=== PATIENT | male | born 1970 | race Two or more races ===

== ENCOUNTER 2017-06-23 00:31 | Emergency (ER) | payer SELFPAY ==
[2017-06-23] MEDS ORDERED: LORazepam 2 MG/ML SDV IVPUSH ONE (00:42)
[2017-06-23] MEDS ORDERED: MVI, Adult with Vitamin K 10 ML, Thiamine 100 MG, Folic Acid 1 MG in Sodium Chloride 0.... IV ONE ×4 (00:42)
--- NOTE | 2017-06-23 01:00 | EDM.PDOC ---
ED HPI GENERAL MEDICAL PROBLEM - General Chief Complaint: Drug or Alcohol Abuse Stated Complaint: AMBULANCE Time Seen by Provider: 06/23/17 00:40 - History of Present Illness INITIAL COMMENTS - FREE TEXT/NARRATIVE: HISTORY AND PHYSICAL: History of present illness: Patient 47-year-old with history of alcoholism and prior acute alcohol withdrawal including DTs per history who presents via paramedics after an 18 day rosales in which he states his last drink was [place] beer approximately 6 PM paramedics reported that he had significant tremors slightly agitated but cooperative on arrival here he seems relatively calm he is very minor tremor she 's not tachycardic or hypertensive he is requesting medical detox and states he' s had severe withdrawn the past. He denies chest pain shortness of breath or other concern Review of systems: As per history of present illness and below otherwise all systems reviewed and negative. Past medical history: As per history of present illness and as reviewed below otherwise noncontributory. Surgical history: As per history of present illness and as reviewed below otherwise noncontributory. Social history: No reported history of drug or alcohol abuse. Family history: As per history of present illness and as reviewed below otherwise noncontributory. Physical exam: HEENT: Generally poor dentition Atraumatic, normocephalic, pupils reactive, negative for conjunctival pallor or scleral icterus, mucous membranes moist, throat clear, neck supple, nontender, trachea midline. Lungs: Clear to auscultation, breath sounds equal bilaterally, chest nontender. Heart: S1S2, regular, negative for clicks, rubs, or JVD. Abdomen: Soft, nondistended, nontender. Negative for masses or hepatosplenomegaly. Negative for costovertebral tenderness. Pelvis: Stable nontender. Genitourinary: Deferred. Rectal: Deferred. Extremities: Atraumatic, negative for cords or calf pain. Neurovascular unremarkable. Neuro: Awake, alert, oriented. Cooperative mild tremors noted Cranial nerves II through XII unremarkable. Cerebellum unremarkable. Motor and sensory unremarkable throughout. Exam nonfocal. Diagnostics: CBC CMP PT/INR EKG chest x-ray Therapeutics: And a bag Ativan 1 mg IV Impression: #1 alcohol abuse/dependence with acute withdrawal Definitive disposition and diagnosis as appropriate pending reevaluation and review of above. abdomen Pain Score (Numeric/FACES): 6 - Related Data Allergies Allergy/AdvReac Type Severity Reaction Status Date / Time No Known Allergies Allergy Verified 06/23/17 00:39 Home Meds: Home Meds . [No Known Home Meds] 06/23/17 [History] Past Medical History - Past Health History Medical/Surgical History: Denies Medical/Surgical History Respiratory History: Reports: TB Social & Family History - Family History Family Medical History: Noncontributory - Tobacco Use Smoking Status *Q: Current Every Day Smoker Years of Tobacco use: 30 Packs/Tins Daily: 1 - Recreational Drug Use Recreational Drug Use: Yes Drug Use in Last 12 Months: Yes Recreational Drug Type: Reports: Marijuana/Hashish ED ROS GENERAL - Review of Systems Review Of Systems: ROS reveals no pertinent complaints other than HPI. ED EXAM, GENERAL - Physical Exam Exam: See Below (The dictation) Course - Vital Signs Last Recorded V/S: Last Vital Signs Temp 36.6 C 06/23/17 00:31 Pulse 63 06/23/17 00:31 Resp 18 06/23/17 00:31 BP 125/96 H 06/23/17 00:31 Pulse Ox 100 06/23/17 00:31 - Orders/Labs/Meds Orders: Active Orders 24 hr Category Date Time Status Chest 1V Frontal [CR] Stat Exams 06/23/17 00:44 Ordered CBC WITH AUTO DIFF [HEME] Stat Lab 06/23/17 00:44 Ordered COMPREHENSIVE METABOLIC PN,CMP [CHEM] Stat Lab 06/23/17 00:44 Ordered DRUG SCREEN, URINE [URCHEM] Stat Lab 06/23/17 00:45 Received ETHANOL BLOOD MEDICAL [CHEM] Stat Lab 06/23/17 00:44 Ordered MVI, Adult with Vitamin K [Infuvite Adult] 10 ml Med 06/23/17 00:42 Active Thiamine [Vitamin B-1] 100 mg Folic Acid 1 mg Sodium Chloride 0.9% [Normal Saline] 1,000 ml IV ONETIME Medication Orders Multivitamins/Minerals 10 ml/Thiamine HCl 100 mg/ Folic Acid 1 mg/ Sodium Chloride 1,011.2 mls @ 999 mls/hr IV ONETIME ONE Stop: 06/23/17 01:42 Labs: Laboratory Tests 06/23/17 Range/Units 00:45 Urine Color DARK YELLOW Urine Appearance HAZY Urine pH 5.5 (5.0-8.0) Ur Specific [place] >= 1.030 (1.001-1.035) Urine Protein >=300 (NEGATIVE) mg/dL Urine Glucose (UA) NEGATIVE (NEGATIVE) mg/dL Urine Ketones NEGATIVE (NEGATIVE) mg/dL Urine Occult Blood SMALL H (NEGATIVE) Urine Nitrite NEGATIVE (NEGATIVE) Urine Bilirubin NEGATIVE (NEGATIVE) Urine Urobilinogen 0.2 (<2.0) EU/dL Ur Leukocyte Esterase NEGATIVE (NEGATIVE) Urine RBC 0-3 (0-2/HPF) Urine WBC 0-3 (0-5/HPF) Ur Epithelial Cells OCCASIONAL (NONE-FEW) Urine Bacteria FEW (NEGATIVE) Urine Mucus MODERATE (NONE-MOD) Meds: Medications Generic Name Dose Route Start Last Admin Trade Name Freq PRN Reason Stop Dose Admin Multivitamins/Minerals 10 ml/ 1,011.2 mls @ 999 mls/hr 06/23/17 00:42 Thiamine HCl 100 mg/ Folic IV 06/23/17 01:42 Acid 1 mg/ Sodium Chloride ONETIME ONE Discontinued Medications Generic Name Dose Route Start Last Admin Trade Name Freq PRN Reason Stop Dose Admin Lorazepam 1 mg 06/23/17 00:42 Ativan IVPUSH 06/23/17 00:43 ONETIME ONE Departure - Departure Time of Disposition: 01:00 Disposition: DC/Tfer to Acute Hospital 02 Condition: Fair Clinical Impression: Alcohol abuse, Alcohol withdrawal syndrome - Discharge Information - My Orders Last 24 Hours: My Active Orders 06/23/17 00:42 MVI, Adult with Vitamin K [Infuvite Adult] 10 ml Thiamine [Vitamin B-1] 100 mg Folic Acid 1 mg Sodium Chloride 0.9% [Normal Saline] 1,000 ml IV ONETIME 06/23/17 00:44 Chest 1V Frontal [CR] Stat CBC WITH AUTO DIFF [HEME] Stat COMPREHENSIVE METABOLIC PN,CMP [CHEM] Stat ETHANOL BLOOD MEDICAL [CHEM] Stat 06/23/17 00:45 DRUG SCREEN, URINE [URCHEM] Stat - Assessment/Plan Last 24 Hours: My Active Orders 06/23/17 00:42 MVI, Adult with Vitamin K [Infuvite Adult] 10 ml Thiamine [Vitamin B-1] 100 mg Folic Acid 1 mg Sodium Chloride 0.9% [Normal Saline] 1,000 ml IV ONETIME 06/23/17 00:44 Chest 1V Frontal [CR] Stat CBC WITH AUTO DIFF [HEME] Stat COMPREHENSIVE METABOLIC PN,CMP [CHEM] Stat ETHANOL BLOOD MEDICAL [CHEM] Stat 06/23/17 00:45 DRUG SCREEN, URINE [URCHEM] Stat
[2017-06-23 01:44] LABS: CHLORIDE,CL 104 mmol/L (98-110); SODIUM,NA 141 mmol/L (136-146)
--- NOTE | 2017-06-24 18:09 | CR ---
EXAM DATE: 06/23/17 PATIENT'S AGE: 47 Patient: JANNETH SWANSON Facility: [place], [place] Site . Site : [id number] Study: XRay Chest [id number] 1:34:43 AM Ordering Physician: Elidia Martino Final Report: INDICATION: Alcohol intoxication TECHNIQUE: Chest radiograph 1 view COMPARISON: None FINDINGS: Mediastinum: The heart silhouette is normal in size and morphology. The mediastinum is normal in appearance. Lungs: Confluent opacities with architectural distortion is seen in the left apex. No sign of pleural effusion seen. No pneumothorax is identified. Bones and soft tissue: Unremarkable for age. IMPRESSION: 1. Confluent opacities with architectural distortion is seen in the left apex. This may be due to pleural parenchymal scarring but evaluation with outpatient chest CT is recommended to exclude a pulmonary mass. Dictated by Akhil Rausch MD @ 06/23/2017 1:38:11 AM Dictated by: Akhil Rausch MD @ 06/23/2017 01:38:14 (Electronic Signature) Report Signed by Proxy. [facility] CENTERStanley
== END 2017-06-23 03:15 ==
LOC: MW.ED 00:31
DX: F10.239 Alcohol dependence with withdrawal, unspecified (principal); F17.210 Nicotine dependence, cigarettes, uncomplicated
CPT/HCPCS: 36415; 71045; 80053; 80305; 81001; 85025; 85610; 93005; 96365; 96375; 99285; G0480; J2060; J3411; J7040; 99283

== ENCOUNTER 2018-09-03 13:34 | Inpatient (IN) | payer OTHER ==
[2018-09-03] MEDS ORDERED: MVI, Adult with Vitamin K 10 ML, Thiamine 100 MG, Folic Acid 1 MG in Sodium Chloride 0.... IV ONE ×4 (13:36)
--- NOTE | 2018-09-03 13:41 | EDM.PDOC ---
ED HPI GENERAL MEDICAL PROBLEM - General Chief Complaint: Neurological Problem Stated Complaint: SEIZURES Time Seen by Provider: 09/03/18 13:36 Source of Information: Reports: Patient History Limitations: Reports: No Limitations - History of Present Illness INITIAL COMMENTS - FREE TEXT/NARRATIVE: HISTORY AND PHYSICAL: History of present illness: Patient is a 48-year-old male who presents to the emergency room today with complaints of seizure-like activity while at work. Patient states he has had a seizure before, but has never been on medication or been formally diagnosed with a seizure disorder. He states that his last seizure was "many years ago" and unsure if it was related to his alcohol use. Patient is a daily alcohol drinker, drinking 12 beers per day. He does not note any change in the amount or consistency of his alcohol usage. He woke up this morning and felt well. While at work prior to arrival he had fallen to the ground and had seizure-like activity for approximately 15-30 seconds. EMS was called to scene. Upon EMS arrival he was alert and postictal. Sugar was 103 on arrival. Vital signs stable. Review of systems: As per history of present illness and below otherwise all systems reviewed and negative. Past medical history: As per history of present illness and as reviewed below otherwise noncontributory. Surgical history: As per history of present illness and as reviewed below otherwise noncontributory. Social history: See social history for further information Family history: As per history of present illness and as reviewed below otherwise noncontributory. Physical exam: General: Well-developed and well-nourished 48-year-old male. Alert and appropriate for age. Nontoxic appearing and in no acute distress. HEENT: Normocephalic, pupils equal and reactive bilaterally, negative for conjunctival pallor or scleral icterus, mucous membranes moist, TMs normal bilaterally, throat clear, neck supple, nontender, trachea midline. No drooling or trismus noted. No meningeal signs. No hot potato voice noted. Lungs: Clear to auscultation, breath sounds equal bilaterally, chest nontender. Heart: S1S2, regular rate and rhythm without overt murmur Abdomen: Soft, nondistended, nontender. Negative for masses or hepatosplenomegaly. Negative for costovertebral tenderness. Pelvis: Stable nontender. Genitourinary: Deferred. Rectal: Deferred. Skin: Intact, warm, dry. No lesions or rashes noted. Extremities: Atraumatic, moves all extremities per self without difficulty or deficits, negative for cords or calf pain. Neurovascular unremarkable. Neuro: Awake, alert, oriented. Cranial nerves II through XII unremarkable. Cerebellum unremarkable. Motor and sensory unremarkable throughout. Exam nonfocal. 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 He states he is currently asymptomatic and offers no complaints but is agreeable to routine lab work and imaging for the seizure-like activity that was witnessed. Head CT shows no acute findings. Chest x-ray is within normal limits. Patient does have some electrolyte imbalances; which could be chronic. He does appear more tremulous and confused; he thinks he is in [facility] currently. VSS but does continue to have elevated pulse of 90-110's. Dr Pelayo was consulted on this case; he is agreeable to keeping patient for observation. Diagnostics: CBC, CMP, EKG, head CT, one view chest, prolactin Therapeutics: Banana Bag, Zofran, NS at 125ml/hr, Ativan Impression: Seizure-like activity Dehydration Alcohol withdrawl Hypokalemia Plan: Observation admission with telemetry Definitive disposition and diagnosis as appropriate pending reevaluation and review of above. Onset: Today - Related Data Allergies Allergy/AdvReac Type Severity Reaction Status Date / Time No Known Allergies Allergy Verified 09/03/18 13:38 Home Meds: Home Meds . [No Known Home Meds] 06/23/17 [History] Past Medical History - Past Health History Medical/Surgical History: Denies Medical/Surgical History Respiratory History: Reports: TB - Infectious Disease History Infectious Disease History: Reports: Chicken Pox Social & Family History - Family History Family Medical History: Noncontributory ED ROS GENERAL - Review of Systems Review Of Systems: ROS reveals no pertinent complaints other than HPI. - Physical Exam Exam: See Below (See dictation) Course - Vital Signs Last Recorded V/S: Last Vital Signs Temp 96.8 F 09/03/18 13:35 Pulse 95 09/03/18 15:38 Resp 18 09/03/18 15:38 BP 113/73 09/03/18 15:38 Pulse Ox 96 09/03/18 15:38 - Orders/Labs/Meds Orders: Active Orders 24 hr Category Date Time Status Admission Status [Patient Status] [ADT] Stat ADT 09/03/18 16:09 Active EKG Documentation Completion [RC] STAT Care 09/03/18 13:36 Active UA RFX DEL AND CULT IF INDIC [URIN] Stat Lab 09/03/18 13:36 Ordered Sodium Chloride 0.9% [Normal Saline] 1,000 ml Med 09/03/18 16:15 Active IV ASDIRECTED Medication Orders Sodium Chloride (Normal Saline) 1,000 mls @ 125 mls/hr IV ASDIRECTED ASHISH Labs: Laboratory Tests 09/03/18 09/03/18 09/03/18 Range/Units 13:48 13:48 13:48 WBC 5.42 (4.0-11.0) K/uL RBC 4.34 L (4.50-5.90) M/uL Hgb 15.0 (13.0-17.0) g/dL Hct 43.4 (38.0-50.0) % MCV 100.0 H (80.0-98.0) fL MCH 34.6 H (27.0-32.0) pg MCHC 34.6 (31.0-37.0) g/dL RDW Std Deviation 52.8 (28.0-62.0) fl RDW Coeff of [place] 14 (11.0-15.0) % Plt Count 58 L (150-400) K/uL MPV 11.10 (7.40-12.00) fL Neut % (Auto) 76.4 (48.0-80.0) % Lymph % (Auto) 10.9 L (16.0-40.0) % [place] % (Auto) 12.5 (0.0-15.0) % Eos % (Auto) 0.0 (0.0-7.0) % Baso % (Auto) 0.2 (0.0-1.5) % Neut # (Auto) 4.1 (1.4-5.7) K/uL Lymph # (Auto) 0.6 (0.6-2.4) K/uL [place] # (Auto) 0.7 (0.0-0.8) K/uL Eos # (Auto) 0.0 (0.0-0.7) K/uL Baso # (Auto) 0.0 (0.0-0.1) K/uL Nucleated RBC % 0.0 /100WBC Nucleated RBCs # 0 K/uL Sodium 131 L (136-148) mmol/L Potassium 3.2 L (3.5-5.1) mmol/L Chloride 87 L (98-107) mmol/L Carbon Dioxide 15.8 L (21.0-32.0) mmol/L BUN 19 H (7.0-18.0) mg/dL Creatinine 2.0 H (0.8-1.3) mg/dL Est Cr Clr Drug Dosing 41.56 mL/min Estimated GFR (MDRD) 35.7 ml/min Glucose 94 (74-106) mg/dL Calcium 9.6 (8.5-10.1) mg/dL Total Bilirubin 1.7 H (0.2-1.0) mg/dL AST 140 H (15-37) IU/L ALT 53 (14-63) IU/L Alkaline Phosphatase 74 (46-116) U/L Total Protein 8.4 H (6.4-8.2) g/dL Albumin 4.1 (3.4-5.0) g/dL Globulin 4.3 H (2.6-4.0) g/dL Albumin/Globulin Ratio 1.0 (0.9-1.6) Prolactin 28.4 ng/mL Ethyl Alcohol 20 mg/dL Meds: Medications Generic Name Dose Route Start Last Admin Trade Name Freq PRN Reason Stop Dose Admin Sodium Chloride 1,000 mls @ 125 mls/hr 09/03/18 16:15 Normal Saline IV ASDIRECTED ASHISH Discontinued Medications Generic Name Dose Route Start Last Admin Trade Name Freq PRN Reason Stop Dose Admin Multivitamins/Minerals 10 ml/ 1,011.2 mls @ 999 mls/hr 09/03/18 13:36 14:19 Thiamine HCl 100 mg/ Folic IV 09/03/18 14:36 999 mls/hr Acid 1 mg/ Sodium Chloride ONETIME ONE Administration Lorazepam 1 mg 09/03/18 16:01 Ativan IVPUSH 09/03/18 16:02 ONETIME ONE Departure - Departure Time of Disposition: 16:17 Disposition: Refer to Observation Clinical Impression: Seizure-like activity, Hypokalemia, Dehydration Alcohol withdrawal Qualifiers: Complication of substance-induced condition: uncomplicated Qualified Code(s): F10.230 - Alcohol dependence with withdrawal, uncomplicated - Discharge Information Referrals: PCP,Unknown [Primary Care Provider] - Forms: ED Department Discharge - My Orders Last 24 Hours: My Active Orders 09/03/18 13:36 EKG Documentation Completion [RC] STAT UA RFX DEL AND CULT IF INDIC [URIN] Stat 09/03/18 16:09 Admission Status [Patient Status] [ADT] Stat 09/03/18 16:15 Sodium Chloride 0.9% [Normal Saline] 1,000 ml IV ASDIRECTED - Assessment/Plan Last 24 Hours: My Active Orders 09/03/18 13:36 EKG Documentation Completion [RC] STAT UA RFX DEL AND CULT IF INDIC [URIN] Stat 09/03/18 16:09 Admission Status [Patient Status] [ADT] Stat 09/03/18 16:15 Sodium Chloride 0.9% [Normal Saline] 1,000 ml IV ASDIRECTED
--- NOTE | 2018-09-03 15:20 | CR ---
EXAMINATION: Portable chest radiograph. HISTORY: Seizure. Comparison: 06/23/2014 FINDINGS: The trachea is midline. The cardiomediastinal silhouette is within normal limits. No pulmonary infiltrates, effusions or pneumothorax. Left basilar atelectasis/scarring. Stable scarring within the left upper lobe. Small nipple shadows noted bilaterally. Osseous structures appear unremarkable. IMPRESSION: No acute cardiopulmonary process.
--- NOTE | 2018-09-03 15:26 | CT ---
EXAMINATION: Non contrast CT head. Coronal and sagittal reformats. HISTORY: Seizure FINDINGS: No evidence of intra or extra axial hemorrhage, mass, midline shift, hydrocephalus or edema. Mild generalized atrophy. No hypoattenuation changes in the major vascular territories to suggest acute infarct. No abnormal intracranial calcifications are detected. No evidence of substantial vascular calcifications. Orbits and globes are symmetric. Minimal mucosal thickening within the Findings sinuses. Mastoid air cells and middle ears are clear. Pituitary fossa appears unremarkable. Calvarium is intact. No evidence of skull fracture. IMPRESSION: No acute intracranial findings.
[2018-09-03] MEDS ORDERED: LORazepam 2 MG/ML SDV IVPUSH ONE (16:01)
[2018-09-03] MEDS ORDERED: Ondansetron 4 MG/2 ML SDV IVPUSH PRN (16:31)
[2018-09-03] MEDS ORDERED: Acetaminophen 325 MG Tab PO PRN (16:31)
[2018-09-03] MEDS: Sodium Chloride 0.9% 1,000 ML IV SCH (16:34)
--- NOTE | 2018-09-03 16:42 | PCM.HP ---
<Jerilyn Burns M - Last Filed: 09/03/18 16:36> H&P History of Present Illness - General Date of Service: 09/03/18 Admit Problem/Dx: Admission Diagnosis/Problem Admission Diagnosis/Problem Alcohol withdrawal syndrome Source of Information: Patient History Limitations: Reports: No Limitations - History of Present Illness Initial Comments - Free Text/Narative: This 48 year old male with pmh of alcohol abuse and dependence, with history of withdrawl and seizures presented to the ED after having an episode of seizure like activity at work. He reports he was looking up and then next thing he was on the ground and co-workers around him saw him tremulous. No urine or bowel incontinence. He reports he drinks 12 pack of beer daily, starting to drink in the mornings to keep the shakes away. Adds in hard alcohol intermittently ad on the weekends he easily drinks 30 beers daily. He reports he has quit for short period of time, but is not interested in inpatient treatment. He reports I need to keep working. Sobriety was urged due to health concerns currently. He reports his last drink was last evening sometime. In the ED thrombocytopenia noted, platelets 58,000, Na 131, K+ 3.2, Bicarb 15.8 , BUN 19, Cr 2.0. Bilirubin 1.[address] negative as well as CXR. He was noted to be tachycardic and tremulous in the ED. He was given MVI in 1 L NS along with Ativan. he will be admitted for alcohol withdrawl. - Related Data Allergies/Adverse Reactions: Allergies Allergy/AdvReac Type Severity Reaction Status Date / Time No Known Allergies Allergy Verified 09/03/18 13:38 Home Medications: Home Meds . [No Known Home Meds] 06/23/17 [History] Past Medical History - Past Health History Medical/Surgical History: Denies Medical/Surgical History Cardiovascular History: Reports: None. Denies: Afib, Blood Clots/VTE/DVT, High Cholesterol, Hypertension, OR Respiratory History: Reports: TB (treated in 2007) Neurological History: Reports: Seizure Psychiatric History: Reports: Addiction - Infectious Disease History Infectious Disease History: Reports: Chicken Pox, TB - Past Surgical History Cardiovascular Surgical History: Reports: None Respiratory Surgical History: Reports: None GI Surgical History: Reports: None Social & Family History - Family History Family Medical History: Noncontributory - Tobacco Use Smoking Status *Q: Current Every Day Smoker Years of Tobacco use: 30 Packs/Tins Daily: 1 - Alcohol Use Alcohol Use History: Yes Days Per Week of Alcohol Use: 7 Number of Drinks Per Day: 18 Total Drinks Per Week: 126 Alcohol Use Frequency: Daily - Recreational Drug Use Recreational Drug Use: No - Living Situation & Occupation Occupation: Employed ([employer]) H&P Review of Systems - Review of Systems: Review Of Systems: See Below General: Reports: Malaise. Denies: Fever, Chills HEENT: Reports: No Symptoms. Denies: Headaches, Sinus Congestion, Sore Throat, Vertigo Pulmonary: Reports: No Symptoms. Denies: Shortness of Breath Cardiovascular: Reports: No Symptoms. Denies: Chest Pain Gastrointestinal: Reports: No Symptoms. Denies: Abdominal Pain, Black Stool, Bloody Stool, Nausea, Vomiting Genitourinary: Reports: No Symptoms. Denies: Dysuria, Frequency, Burning Musculoskeletal: Reports: No Symptoms. Denies: Neck Pain Skin: Reports: No Symptoms Psychiatric: Reports: No Symptoms Neurological: Reports: Tremors Hematologic/Lymphatic: Reports: No Symptoms Immunologic: Reports: No Symptoms Exam - Exam Exam: See Below - Vital Signs Vital Signs: Last Vital Signs Temp 96.8 F 09/03/18 13:35 Pulse 117 H 09/03/18 16:30 Resp 18 09/03/18 16:30 BP 110/76 09/03/18 16:30 Pulse Ox 97 09/03/18 16:30 Weight: 65.771 kg - Exam General: Alert, Oriented, Cooperative, Other (cachectic in appearance, and unkept) HEENT: Conjunctiva Clear, Mucosa Moist & [place], Pupils Reactive Lungs: Clear to Auscultation, Normal Respiratory Effort Cardiovascular: Tachycardia GI/Abdominal Exam: Normal Bowel Sounds, Soft, Non-Tender Extremities: Normal Inspection, Normal Range of Motion, Non-Tender, No Pedal Edema Neuro Extensive - Mental Status: Alert, Oriented x3, Normal Mood/Affect Neuro Extensive - Motor, Sensory, Reflexes: CN II-XII Intact Psychiatric: Alert, Normal Affect, Anxious, Withdrawal Symptoms (tremulous) - Patient Data Lab Results Last 24 hrs: Laboratory Results - last 24 hr 05/01/19 05/01/19 05/01/19 Range/Units 13:48 13:48 13:48 WBC 5.42 (4.0-11.0) K/uL RBC 4.34 L (4.50-5.90) M/uL Hgb 15.0 (13.0-17.0) g/dL Hct 43.4 (38.0-50.0) % MCV 100.0 H (80.0-98.0) fL MCH 34.6 H (27.0-32.0) pg MCHC 34.6 (31.0-37.0) g/dL RDW Std Deviation 52.8 (28.0-62.0) fl RDW Coeff of [place] 14 (11.0-15.0) % Plt Count 58 L (150-400) K/uL MPV 11.10 (7.40-12.00) fL Neut % (Auto) 76.4 (48.0-80.0) % Lymph % (Auto) 10.9 L (16.0-40.0) % Real % (Auto) 12.5 (0.0-15.0) % Eos % (Auto) 0.0 (0.0-7.0) % Baso % (Auto) 0.2 (0.0-1.5) % Neut # (Auto) 4.1 (1.4-5.7) K/uL Lymph # (Auto) 0.6 (0.6-2.4) K/uL Real # (Auto) 0.7 (0.0-0.8) K/uL Eos # (Auto) 0.0 (0.0-0.7) K/uL Baso # (Auto) 0.0 (0.0-0.1) K/uL Nucleated RBC % 0.0 /100WBC Nucleated RBCs # 0 K/uL Sodium 131 L (136-148) mmol/L Potassium 3.2 L (3.5-5.1) mmol/L Chloride 87 L (98-107) mmol/L Carbon Dioxide 15.8 L (21.0-32.0) mmol/L BUN 19 H (7.0-18.0) mg/dL Creatinine 2.0 H (0.8-1.3) mg/dL Est Cr Clr Drug Dosing 41.56 mL/min Estimated GFR (MDRD) 35.7 ml/min Glucose 94 (74-106) mg/dL Calcium 9.6 (8.5-10.1) mg/dL Total Bilirubin 1.7 H (0.2-1.0) mg/dL AST 140 H (15-37) IU/L ALT 53 (14-63) IU/L Alkaline Phosphatase 74 (46-116) U/L Total Protein 8.4 H (6.4-8.2) g/dL Albumin 4.1 (3.4-5.0) g/dL Globulin 4.3 H (2.6-4.0) g/dL Albumin/Globulin Ratio 1.0 (0.9-1.6) Prolactin 28.4 ng/mL Ethyl Alcohol 20 mg/dL Result Diagrams: 09/03/18 13:48 09/03/18 13:48 *Q Meaningful Use (ADM) - VTE *Q VTE Pharmacological Contraindications *Q: Risk of Bleeding - Problem List (1) Alcohol withdrawal syndrome SNOMED Code(s): 652274885 ICD Code: F10.239 - ALCOHOL DEPENDENCE WITH WITHDRAWAL, UNSPECIFIED Status : Acute Current Visit: Yes Qualifiers: Complication of substance-induced condition: uncomplicated Qualified Code(s ): F10.230 - Alcohol dependence with withdrawal, uncomplicated (2) Thrombocytopenia SNOMED Code(s): 390711910 ICD Code: D69.6 - THROMBOCYTOPENIA, UNSPECIFIED Status: Acute Current Visit: Yes (3) Dehydration SNOMED Code(s): 51790158 ICD Code: E86.0 - DEHYDRATION Status: Acute Current Visit: Yes (4) Hypokalemia SNOMED Code(s): 01084052 ICD Code: E87.6 - HYPOKALEMIA Status: Acute Current Visit: Yes (5) Seizure-like activity SNOMED Code(s): 902565995 ICD Code: R56.9 - UNSPECIFIED CONVULSIONS Status: Acute Current Visit: Yes (6) Alcohol abuse SNOMED Code(s): 23527978 ICD Code: F10.10 - ALCOHOL ABUSE, UNCOMPLICATED Status: Chronic Current Visit: No (7) Alcohol dependence SNOMED Code(s): 51478123 ICD Code: F10.20 - ALCOHOL DEPENDENCE, UNCOMPLICATED Status: Chronic Current Visit: No Qualifiers: Substance use status: unspecified alcohol-induced disorder Qualified Code(s ): F10.29 - Alcohol dependence with unspecified alcohol-induced disorder Problem List Initiated/Reviewed/Updated: Yes Orders Last 24hrs: Active Orders 24 hr Category Date Time Status Admission Status [Patient Status] [ADT] Stat ADT 09/03/18 16:09 Active Antiembolic Devices [RC] PER UNIT ROUTINE Care 09/03/18 16:33 Ordered CIWAA Assessment [RC] Q4H Care 09/03/18 16:31 Ordered EKG Documentation Completion [RC] STAT Care 09/03/18 13:36 Active Intake and Output [RC] QSHIFT Care 09/03/18 16:32 Ordered Oxygen Therapy [RC] PRN Care 09/03/18 16:31 Ordered Telemetry Monitoring [Cardiac Monitoring] [RC] . Care 09/03/18 16:35 Ordered DIRECTED Up With Assistance [RC] ASDIRECTED Care 09/03/18 16:31 Ordered VTE/DVT Education [RC] PER UNIT ROUTINE Care 09/03/18 16:31 Ordered Vital Signs [RC] Q4H Care 09/03/18 16:31 Ordered Regular Diet [DIET] Diet 09/03/18 Dinner Ordered CBC WITH AUTO DIFF [HEME] AM Lab 09/04/18 05:11 Ordered COMPREHENSIVE METABOLIC PN,CMP [CHEM] AM Lab 09/04/18 05:11 Ordered UA RFX DEL AND CULT IF INDIC [URIN] Stat Lab 09/03/18 13:36 Ordered Acetaminophen [Tylenol] Med 09/03/18 16:31 Ordered 650 mg PO Q4H PRN Folic Acid Med 09/03/18 21:00 Ordered 1 mg PO BEDTIME LORazepam [Ativan] Med 09/03/18 16:31 Ordered See Protocol IV Q4H PRN Ondansetron [Zofran] Med 09/03/18 16:31 Ordered 4 mg IVPUSH Q4H PRN Sodium Chloride 0.9% [Normal Saline] 1,000 ml Med 09/03/18 16:15 Active IV ASDIRECTED Thiamine [Vitamin B-1] Med 09/03/18 21:00 Ordered 100 mg PO BEDTIME Seizure Precautions [OM.PC] Routine Oth 09/03/18 16:35 Ordered Sequential Compression Device [OM.PC] Per Unit Routine Oth 09/03/18 16:32 Ordered Resuscitation Status Routine Resus Stat 09/03/18 16:31 Ordered Medication Orders Acetaminophen (Tylenol) 650 mg PO Q4H PRN PRN Reason: Pain (Mild 1-3)/fever Folic Acid (Folic Acid) 1 mg PO BEDTIME ASHISH Sodium Chloride (Normal Saline) 1,000 mls @ 125 mls/hr IV ASDIRECTED [facility] Lorazepam (Ativan) 0 mg IV Q4H PRN; Protocol PRN Reason: CIWAA Ondansetron HCl (Zofran) 4 mg IVPUSH Q4H PRN PRN Reason: Nausea Thiamine HCl (Vitamin B-1) 100 mg PO BEDTIME ASHISH Assessment/Plan Comment:: This 48 year old male admitted with alcohol withdrawal symptoms and possible seizure. 1. Alcohol withdrawal: reports seizure like activity has happened in past. Educated him that it is most likely due to heavy alcohol use and then withdrawal. Will place on CIWAA with Ativan protocol. Seizure precautions. Thiamine and folic acid. HIGH fall risk. Nursing to monitor closely. Denies wanting inpatient treatment. Will provide community resources for sobriety. 2. Dehydration: Correct electrolytes. NS with 40 KCL x 1 then continue NS at 125 overnight. recheck BMP in am. 3. Thrombocytopenia: Last platelet count 108,000. Will monitor No signs of bleeding. Likely secondary to alcoholic cirrhosis. will check INR in am. VTE prophylaxis: SCDs. Dispo: 1-2 days pending improvement. <Gustabo Pelayo - Last Filed: 09/03/18 17:02> H&P History of Present Illness - General Admit Problem/Dx: Admission Diagnosis/Problem Admission Diagnosis/Problem Alcohol withdrawal syndrome I have seen and examined to patient independently of Jerilyn Burns CNP. I have discussed the case for care of this patient with her. I have reviewed and approve of the plan of care as outlined by MEDICAL CASE WORKER. Please see orders. Exam - Vital Signs Vital Signs: Last Vital Signs Temp 36.0 C 09/03/18 13:35 Pulse 117 H 09/03/18 16:30 Resp 18 09/03/18 16:30 BP 110/76 09/03/18 16:30 Pulse Ox 97 09/03/18 16:30 - Patient Data Lab Results Last 24 hrs: Laboratory Results - last 24 hr 09/03/18 09/03/18 09/03/18 Range/Units 13:48 13:48 13:48 WBC 5.42 (4.0-11.0) K/uL RBC 4.34 L (4.50-5.90) M/uL Hgb 15.0 (13.0-17.0) g/dL Hct 43.4 (38.0-50.0) % MCV 100.0 H (80.0-98.0) fL MCH 34.6 H (27.0-32.0) pg MCHC 34.6 (31.0-37.0) g/dL RDW Std Deviation 52.8 (28.0-62.0) fl RDW Coeff of [place] 14 (11.0-15.0) % Plt Count 58 L (150-400) K/uL MPV 11.10 (7.40-12.00) fL Neut % (Auto) 76.4 (48.0-80.0) % Lymph % (Auto) 10.9 L (16.0-40.0) % Real % (Auto) 12.5 (0.0-15.0) % Eos % (Auto) 0.0 (0.0-7.0) % Baso % (Auto) 0.2 (0.0-1.5) % Neut # (Auto) 4.1 (1.4-5.7) K/uL Lymph # (Auto) 0.6 (0.6-2.4) K/uL Real # (Auto) 0.7 (0.0-0.8) K/uL Eos # (Auto) 0.0 (0.0-0.7) K/uL Baso # (Auto) 0.0 (0.0-0.1) K/uL Nucleated RBC % 0.0 /100WBC Nucleated RBCs # 0 K/uL Sodium 131 L (136-148) mmol/L Potassium 3.2 L (3.5-5.1) mmol/L Chloride 87 L (98-107) mmol/L Carbon Dioxide 15.8 L (21.0-32.0) mmol/L BUN 19 H (7.0-18.0) mg/dL Creatinine 2.0 H (0.8-1.3) mg/dL Est Cr Clr Drug Dosing 41.56 mL/min Estimated GFR (MDRD) 35.7 ml/min Glucose 94 (74-106) mg/dL Calcium 9.6 (8.5-10.1) mg/dL Total Bilirubin 1.7 H (0.2-1.0) mg/dL AST 140 H (15-37) IU/L ALT 53 (14-63) IU/L Alkaline Phosphatase 74 (46-116) U/L Total Protein 8.4 H (6.4-8.2) g/dL Albumin 4.1 (3.4-5.0) g/dL Globulin 4.3 H (2.6-4.0) g/dL Albumin/Globulin Ratio 1.0 (0.9-1.6) Prolactin 28.4 ng/mL Ethyl Alcohol 20 mg/dL Result Diagrams: 09/03/18 13:48 09/03/18 13:48 Orders Last 24hrs: Active Orders 24 hr Category Date Time Status Admission Status [Patient Status] [ADT] Stat ADT 09/03/18 16:09 Active Antiembolic Devices [RC] PER UNIT ROUTINE Care 09/03/18 16:33 Active CIWAA Assessment [RC] Q4H Care 09/03/18 16:31 Active EKG Documentation Completion [RC] STAT Care 09/03/18 13:36 Active Intake and Output [RC] QSHIFT Care 09/03/18 16:32 Active Oxygen Therapy [RC] PRN Care 09/03/18 16:31 Active Telemetry Monitoring [Cardiac Monitoring] [RC] . Care 09/03/18 16:35 Active DIRECTED Up With Assistance [RC] ASDIRECTED Care 09/03/18 16:31 Active VTE/DVT Education [RC] PER UNIT ROUTINE Care 09/03/18 16:31 Active Vital Signs [RC] Q4H Care 09/03/18 16:31 Active Regular Diet [DIET] Diet 09/03/18 Dinner Active CBC WITH AUTO DIFF [HEME] AM Lab 09/04/18 05:11 Ordered COMPREHENSIVE METABOLIC PN,CMP [CHEM] AM Lab 09/04/18 05:11 Ordered INR,PT,PROTHROMBIN TIME [COAG] AM Lab 09/04/18 05:11 Ordered UA RFX DEL AND CULT IF INDIC [URIN] Stat Lab 09/03/18 13:36 Ordered Acetaminophen [Tylenol] Med 09/03/18 16:31 Active 650 mg PO Q4H PRN Folic Acid Med 09/03/18 21:00 Active 1 mg PO BEDTIME LORazepam [Ativan] Med 09/03/18 16:31 Active See Protocol IV Q4H PRN Ondansetron [Zofran] Med 09/03/18 16:31 Active 4 mg IVPUSH Q4H PRN Sodium Chloride 0.9% [Normal Saline] 1,000 ml Med 09/03/18 16:15 Active IV ASDIRECTED Sodium Chloride 0.9% with KCl [Normal Saline with 40 Med 09/03/18 16:45 Active mEq KCl] 1,000 ml IV ASDIRECTED Thiamine [Vitamin B-1] Med 09/03/18 21:00 Active 100 mg PO BEDTIME Seizure Precautions [OM.PC] Routine Oth 09/03/18 16:35 Ordered Sequential Compression Device [OM.PC] Per Unit Routine Oth 09/03/18 16:32 Ordered Resuscitation Status Routine Resus Stat 09/03/18 16:31 Ordered Medication Orders Acetaminophen (Tylenol) 650 mg PO Q4H PRN PRN Reason: Pain (Mild 1-3)/fever Folic Acid (Folic Acid) 1 mg PO BEDTIME ASHISH Sodium Chloride (Normal Saline) 1,000 mls @ 125 mls/hr IV ASDIRECTED ASHISH Last Admin: 09/03/18 16:34 Dose: 125 mls/hr Potassium Chloride/Sodium Chloride (Normal Saline With 40 Meq Kcl) 1,000 mls @ 150 mls/hr IV ASDIRECTED ASHISH Stop: 09/03/18 23:24 Lorazepam (Ativan) 0 mg IV Q4H PRN; Protocol PRN Reason: CIWAA Ondansetron HCl (Zofran) 4 mg IVPUSH Q4H PRN PRN Reason: Nausea Thiamine HCl (Vitamin B-1) 100 mg PO BEDTIME ASHISH
[2018-09-03] MEDS ORDERED: Sodium Chloride 0.9% with KCl 1,000 ML IV SCH (16:45)
[2018-09-03] MEDS: LORazepam 2 MG/ML SDV IV PRN ×2 (19:11→22:14)
[2018-09-03] MEDS: Folic Acid 1 MG Tab PO SCH (20:27)
[2018-09-03] MEDS: Thiamine 100 MG Tab PO SCH (20:27)
[2018-09-03] MEDS: chlordiazePOXIDE 10 MG Cap PO SCH (21:52)
[2018-09-04] MEDS: Sodium Chloride 0.9% 1,000 ML IV SCH ×3 (01:41→18:47)
[2018-09-04] MEDS ORDERED: Sodium Chloride 0.9% 500 ML IV STA (02:06)
[2018-09-04 05:37] LABS: CHLORIDE,CL 99 mmol/L (98-107); SODIUM,NA 134 mmol/L (136-148)
[2018-09-04] MEDS: chlordiazePOXIDE 10 MG Cap PO SCH (06:38)
[2018-09-04] MEDS ORDERED: Magnesium Sulfate 3 GM in Sodium Chloride 0.9% 100 ML IV ONE ×2 (08:00→08:15)
[2018-09-04] MEDS ORDERED: Potassium Chloride 40 MEQ in Sodium Chloride 0.9% 500 ML IV ONE ×2 (08:00→19:00)
[2018-09-04] MEDS: LORazepam 2 MG/ML SDV IV PRN ×3 (08:22→16:38)
[2018-09-04] MEDS ORDERED: Bisacodyl 5 MG Tab PO PRN (08:25)
[2018-09-04] MEDS: Nicotine 21 MG/24 Hr Patch TRDERM SCH (09:48)
--- NOTE | 2018-09-04 11:08 | PCM.PN ---
<Jerilyn Burns M - Last Filed: 09/04/18 11:03> - General Info Date of Service: 09/04/18 Admission Dx/Problem (Free Text): Admission Diagnosis/Problem Admission Diagnosis/Problem Alcohol withdrawal syndrome Subjective Update: Reports he is feeling better today. No chest pain or SOB. Asking to go home. Reports he needs to get back to work. Functional Status: Reports: Pain Controlled, Tolerating Diet, Urinating - Review of Systems General: Reports: No Symptoms. Denies: Fever, Weakness, Fatigue Pulmonary: Reports: No Symptoms. Denies: Shortness of Breath Cardiovascular: Reports: No Symptoms. Denies: Chest Pain Gastrointestinal: Reports: No Symptoms, Abdominal Pain. Denies: Nausea, Vomiting Genitourinary: Reports: No Symptoms Musculoskeletal: Reports: No Symptoms Skin: Reports: No Symptoms Neurological: Reports: Tremors Psychiatric: Reports: No Symptoms - Patient Data Vitals - Most Recent: Last Vital Signs Temp 99.1 F 09/04/18 08:04 Pulse 82 09/04/18 07:00 Resp 14 09/04/18 09:00 BP 112/64 09/04/18 09:00 Pulse Ox 95 09/04/18 09:00 Weight - Most Recent: 53.524 kg I&O - Last 24 Hours: Intake & Output 09/03/18 09/04/18 09/04/18 22:59 06:59 14:59 Intake Total 2445 Output Total 250 Balance 2195 Lab Results Last 24 Hours: Laboratory Results - last 24 hr 09/03/18 09/03/18 09/03/18 Range/Units 13:48 13:48 13:48 WBC 5.42 (4.0-11.0) K/uL RBC 4.34 L (4.50-5.90) M/uL Hgb 15.0 (13.0-17.0) g/dL Hct 43.4 (38.0-50.0) % MCV 100.0 H (80.0-98.0) fL MCH 34.6 H (27.0-32.0) pg MCHC 34.6 (31.0-37.0) g/dL RDW Std Deviation 52.8 (28.0-62.0) fl RDW Coeff of [place] 14 (11.0-15.0) % Plt Count 58 L (150-400) K/uL MPV 11.10 (7.40-12.00) fL Neut % (Auto) 76.4 (48.0-80.0) % Lymph % (Auto) 10.9 L (16.0-40.0) % [place] % (Auto) 12.5 (0.0-15.0) % Eos % (Auto) 0.0 (0.0-7.0) % Baso % (Auto) 0.2 (0.0-1.5) % Neut # (Auto) 4.1 (1.4-5.7) K/uL Lymph # (Auto) 0.6 (0.6-2.4) K/uL [place] # (Auto) 0.7 (0.0-0.8) K/uL Eos # (Auto) 0.0 (0.0-0.7) K/uL Baso # (Auto) 0.0 (0.0-0.1) K/uL Nucleated RBC % 0.0 /100WBC Nucleated RBCs # 0 K/uL INR Sodium 131 L (136-148) mmol/L Potassium 3.2 L (3.5-5.1) mmol/L Chloride 87 L (98-107) mmol/L Carbon Dioxide 15.8 L (21.0-32.0) mmol/L BUN 19 H (7.0-18.0) mg/dL Creatinine 2.0 H (0.8-1.3) mg/dL Est Cr Clr Drug Dosing 41.56 mL/min Estimated GFR (MDRD) 35.7 ml/min Glucose 94 (74-106) mg/dL Calcium 9.6 (8.5-10.1) mg/dL Magnesium (1.8-2.4) mg/dL Total Bilirubin 1.7 H (0.2-1.0) mg/dL AST 140 H (15-37) IU/L ALT 53 (14-63) IU/L Alkaline Phosphatase 74 (46-116) U/L Total Protein 8.4 H (6.4-8.2) g/dL Albumin 4.1 (3.4-5.0) g/dL Globulin 4.3 H (2.6-4.0) g/dL Albumin/Globulin Ratio 1.0 (0.9-1.6) Prolactin 28.4 ng/mL Urine Color Urine Appearance Urine pH (5.0-8.0) Ur Specific [place] (1.001-1.035) Urine Protein (NEGATIVE) mg/dL Urine Glucose (UA) (NEGATIVE) mg/dL Urine Ketones (NEGATIVE) mg/dL Urine Occult Blood (NEGATIVE) Urine Nitrite (NEGATIVE) Urine Bilirubin (NEGATIVE) Urine Ictotest Urine Urobilinogen (<2.0) EU/dL Ur Leukocyte Esterase (NEGATIVE) Urine RBC (0-2/HPF) Urine WBC (0-5/HPF) Ur Epithelial Cells (NONE-FEW) Urine Bacteria (NEGATIVE) Urine Mucus (NONE-MOD) Ethyl Alcohol 20 mg/dL 09/04/18 09/04/18 09/04/18 Range/Units 01:35 05:05 05:05 WBC 3.78 L (4.0-11.0) K/uL RBC 3.56 L (4.50-5.90) M/uL Hgb 12.2 L (13.0-17.0) g/dL Hct 35.6 L (38.0-50.0) % MCV 100.0 H (80.0-98.0) fL MCH 34.3 H (27.0-32.0) pg MCHC 34.3 (31.0-37.0) g/dL RDW Std Deviation 52.4 (28.0-62.0) fl RDW Coeff of [place] 14 (11.0-15.0) % Plt Count 45 L (150-400) K/uL MPV 11.40 (7.40-12.00) fL Neut % (Auto) 60.1 (48.0-80.0) % Lymph % (Auto) 27.2 (16.0-40.0) % [place] % (Auto) 11.1 (0.0-15.0) % Eos % (Auto) 1.3 (0.0-7.0) % Baso % (Auto) 0.3 (0.0-1.5) % Neut # (Auto) 2.3 (1.4-5.7) K/uL Lymph # (Auto) 1.0 (0.6-2.4) K/uL [place] # (Auto) 0.4 (0.0-0.8) K/uL Eos # (Auto) 0.1 (0.0-0.7) K/uL Baso # (Auto) 0.0 (0.0-0.1) K/uL Nucleated RBC % 0.0 /100WBC Nucleated RBCs # 0 K/uL INR Sodium 134 L (136-148) mmol/L Potassium 3.2 L (3.5-5.1) mmol/L Chloride 99 (98-107) mmol/L Carbon Dioxide 23.9 (21.0-32.0) mmol/L BUN 16 (7.0-18.0) mg/dL Creatinine 0.8 (0.8-1.3) mg/dL Est Cr Clr Drug Dosing 84.56 mL/min Estimated GFR (MDRD) > 60.0 ml/min Glucose 70 L (74-106) mg/dL Calcium 7.9 L (8.5-10.1) mg/dL Magnesium (1.8-2.4) mg/dL Total Bilirubin 1.4 H (0.2-1.0) mg/dL AST 111 H (15-37) IU/L ALT 46 (14-63) IU/L Alkaline Phosphatase 54 (46-116) U/L Total Protein 6.2 L (6.4-8.2) g/dL Albumin 2.9 L (3.4-5.0) g/dL Globulin 3.3 (2.6-4.0) g/dL Albumin/Globulin Ratio 0.9 (0.9-1.6) Prolactin ng/mL Urine Color DARK YELLOW Urine Appearance SLT CLOUDY Urine pH 5.5 (5.0-8.0) Ur Specific [place] 1.020 (1.001-1.035) Urine Protein 100 H (NEGATIVE) mg/dL Urine Glucose (UA) NEGATIVE (NEGATIVE) mg/dL Urine Ketones 40 H (NEGATIVE) mg/dL Urine Occult Blood TRACE-INTACT H (NEGATIVE) Urine Nitrite POSITIVE H (NEGATIVE) Urine Bilirubin MODERATE H (NEGATIVE) Urine Ictotest NEGATIVE Urine Urobilinogen 2.0 H (<2.0) EU/dL Ur Leukocyte Esterase NEGATIVE (NEGATIVE) Urine RBC 0-1 (0-2/HPF) Urine WBC 0-1 (0-5/HPF) Ur Epithelial Cells RARE (NONE-FEW) Urine Bacteria 2+ H (NEGATIVE) Urine Mucus LIGHT (NONE-MOD) Ethyl Alcohol mg/dL 09/04/18 09/04/18 Range/Units 05:05 05:05 WBC (4.0-11.0) K/uL RBC (4.50-5.90) M/uL Hgb (13.0-17.0) g/dL Hct (38.0-50.0) % MCV (80.0-98.0) fL MCH (27.0-32.0) pg MCHC (31.0-37.0) g/dL RDW Std Deviation (28.0-62.0) fl RDW Coeff of [place] (11.0-15.0) % Plt Count (150-400) K/uL MPV (7.40-12.00) fL Neut % (Auto) (48.0-80.0) % Lymph % (Auto) (16.0-40.0) % [place] % (Auto) (0.0-15.0) % Eos % (Auto) (0.0-7.0) % Baso % (Auto) (0.0-1.5) % Neut # (Auto) (1.4-5.7) K/uL Lymph # (Auto) (0.6-2.4) K/uL [place] # (Auto) (0.0-0.8) K/uL Eos # (Auto) (0.0-0.7) K/uL Baso # (Auto) (0.0-0.1) K/uL Nucleated RBC % /100WBC Nucleated RBCs # K/uL INR 1.12 Sodium (136-148) mmol/L Potassium (3.5-5.1) mmol/L Chloride (98-107) mmol/L Carbon Dioxide (21.0-32.0) mmol/L BUN (7.0-18.0) mg/dL Creatinine (0.8-1.3) mg/dL Est Cr Clr Drug Dosing mL/min Estimated GFR (MDRD) ml/min Glucose (74-106) mg/dL Calcium (8.5-10.1) mg/dL Magnesium 1.6 L (1.8-2.4) mg/dL Total Bilirubin (0.2-1.0) mg/dL AST (15-37) IU/L ALT (14-63) IU/L Alkaline Phosphatase (46-116) U/L Total Protein (6.4-8.2) g/dL Albumin (3.4-5.0) g/dL Globulin (2.6-4.0) g/dL Albumin/Globulin Ratio (0.9-1.6) Prolactin ng/mL Urine Color Urine Appearance Urine pH (5.0-8.0) Ur Specific [place] (1.001-1.035) Urine Protein (NEGATIVE) mg/dL Urine Glucose (UA) (NEGATIVE) mg/dL Urine Ketones (NEGATIVE) mg/dL Urine Occult Blood (NEGATIVE) Urine Nitrite (NEGATIVE) Urine Bilirubin (NEGATIVE) Urine Ictotest Urine Urobilinogen (<2.0) EU/dL Ur Leukocyte Esterase (NEGATIVE) Urine RBC (0-2/HPF) Urine WBC (0-5/HPF) Ur Epithelial Cells (NONE-FEW) Urine Bacteria (NEGATIVE) Urine Mucus (NONE-MOD) Ethyl Alcohol mg/dL Med Orders - Current: Current Medications Acetaminophen (Tylenol) 650 mg PO Q4H PRN PRN Reason: Pain (Mild 1-3)/fever Bisacodyl (Dulcolax) 10 mg PO BID PRN PRN Reason: Constipation Last Admin: 09/04/18 08:47 Dose: 10 mg Chlordiazepoxide HCl (Librium) 10 mg PO TID [facility] Folic Acid (Folic Acid) 1 mg PO BEDTIME [facility] Last Admin: 09/03/18 20:27 Dose: 1 mg Sodium Chloride (Normal Saline) 1,000 mls @ 125 mls/hr IV ASDIRECTED [facility] Last Admin: 09/04/18 10:32 Dose: 125 mls/hr Potassium Chloride 40 meq/ (Sodium Chloride) 520 mls @ 130 mls/hr IV ONETIME ONE Stop: 09/04/18 11:59 Last Admin: 09/04/18 08:21 Dose: 130 mls/hr Potassium Chloride 40 meq/ (Sodium Chloride) 520 mls @ 130 mls/hr IV ONETIME ONE Stop: 09/04/18 22:59 Lorazepam (Ativan) 0 mg IV Q4H PRN; Protocol PRN Reason: CIWAA Last Admin: 09/04/18 08:22 Dose: 1 mg Nicotine (Habitrol) 21 mg TRDERM DAILY [facility] Last Admin: 09/04/18 09:48 Dose: 21 mg Ondansetron HCl (Zofran) 4 mg IVPUSH Q4H PRN PRN Reason: Nausea Thiamine HCl (Vitamin B-1) 100 mg PO BEDTIME [facility] Last Admin: 09/03/18 20:27 Dose: 100 mg Discontinued Medications Chlordiazepoxide HCl (Librium) 10 mg PO TID [facility] Last Admin: 09/04/18 06:38 Dose: 10 mg Chlordiazepoxide HCl (Librium) Confirm Administered Dose 10 mg .ROUTE .STK-MED ONE Stop: 09/03/18 21:51 Last Admin: 09/03/18 22:15 Dose: Not Given Chlordiazepoxide HCl (Librium) Confirm Administered Dose 10 mg .ROUTE .STK-MED ONE Stop: 09/04/18 06:10 Last Admin: 09/04/18 06:38 Dose: Not Given Multivitamins/Minerals 10 ml/Thiamine HCl 100 mg/ Folic Acid 1 mg/ Sodium Chloride 1,011.2 mls @ 999 mls/hr IV ONETIME ONE Stop: 09/03/18 14:36 Last Admin: 09/03/18 14:19 Dose: 999 mls/hr Potassium Chloride/Sodium Chloride (Normal Saline With 40 Meq Kcl) 1,000 mls @ 150 mls/hr IV ASDIRECTED [facility] Stop: 09/03/18 23:24 Last Admin: 09/03/18 18:29 Dose: 150 mls/hr Sodium Chloride (Normal Saline) 500 mls @ 500 mls/hr IV NOW [facility] Stop: 09/04/18 03:05 Last Admin: 09/04/18 02:17 Dose: 500 mls/hr Magnesium Sulfate 3 gm/ Sodium (Chloride) 106 mls @ 53 mls/hr IV ONETIME ONE Stop: 09/04/18 09:59 Last Admin: 09/04/18 08:36 Dose: Not Given Magnesium Sulfate 3 gm/ Sodium (Chloride) 106 mls @ 53 mls/hr IV ONETIME ONE Stop: 09/04/18 10:14 Last Admin: 09/04/18 08:21 Dose: 53 mls/hr Lorazepam (Ativan) 1 mg IVPUSH ONETIME ONE Stop: 09/03/18 16:02 Last Admin: 09/03/18 16:34 Dose: 1 mg - Exam General: Alert, Oriented, Cooperative, No Acute Distress Lungs: Clear to Auscultation, Normal Respiratory Effort Cardiovascular: Regular Rate, Regular Rhythm GI/Abdominal Exam: Normal Bowel Sounds, Soft, Non-Tender Extremities: Normal Inspection, Normal Range of Motion, Non-Tender, No Pedal Edema Psy/Mental Status: Alert, Withdrawal Symptoms (continues to be tremulous, no hallucinations ) - Problem List & Annotations (1) Alcohol withdrawal syndrome SNOMED Code(s): 204430556 Code(s): F10.239 - ALCOHOL DEPENDENCE WITH WITHDRAWAL, UNSPECIFIED Status: Acute Current Visit: Yes Qualifiers: Complication of substance-induced condition: uncomplicated Qualified Code(s ): F10.230 - Alcohol dependence with withdrawal, uncomplicated (2) Thrombocytopenia SNOMED Code(s): 368748033 Code(s): D69.6 - THROMBOCYTOPENIA, UNSPECIFIED Status: Acute Current Visit: Yes (3) Dehydration SNOMED Code(s): 87344036 Code(s): E86.0 - DEHYDRATION Status: Acute Current Visit: Yes (4) Hypokalemia SNOMED Code(s): 27706191 Code(s): E87.6 - HYPOKALEMIA Status: Acute Current Visit: Yes (5) Seizure-like activity SNOMED Code(s): 319330075 Code(s): R56.9 - UNSPECIFIED CONVULSIONS Status: Acute Current Visit: Yes (6) Alcohol abuse SNOMED Code(s): 08942442 Code(s): F10.10 - ALCOHOL ABUSE, UNCOMPLICATED Status: Chronic Current Visit: No (7) Alcohol dependence SNOMED Code(s): 45554622 Code(s): F10.20 - ALCOHOL DEPENDENCE, UNCOMPLICATED Status: Chronic Current Visit: No Qualifiers: Substance use status: unspecified alcohol-induced disorder Qualified Code(s ): F10.29 - Alcohol dependence with unspecified alcohol-induced disorder - Problem List Review Problem List Initiated/Reviewed/Updated: Yes - My Orders Last 24 Hours: My Active Orders 09/03/18 16:31 CIWAA Assessment [RC] Q4H Oxygen Therapy [RC] PRN Up With Assistance [RC] ASDIRECTED VTE/DVT Education [RC] PER UNIT ROUTINE Vital Signs [RC] Q1H Acetaminophen [Tylenol] 650 mg PO Q4H PRN LORazepam [Ativan] See Protocol IV Q4H PRN Ondansetron [Zofran] 4 mg IVPUSH Q4H PRN Resuscitation Status Routine 09/03/18 16:32 Intake and Output [RC] QSHIFT Sequential Compression Device [OM.PC] Per Unit Routine 09/03/18 16:33 Antiembolic Devices [RC] PER UNIT ROUTINE 09/03/18 16:35 Telemetry Monitoring [Cardiac Monitoring] [RC] Q8H Seizure Precautions [OM.PC] Routine 09/03/18 21:00 Folic Acid 1 mg PO BEDTIME Thiamine [Vitamin B-1] 100 mg PO BEDTIME 09/03/18 Dinner Regular Diet [DIET] 09/04/18 09:30 Nicotine [Habitrol] 21 mg TRDERM DAILY - Plan Plan:: This 48 year old male admitted with alcohol withdrawal symptoms and possible seizure. 1. Alcohol withdrawal: Transferred to ICU last evening with CIWAA scores in the 30s. Given Ativan 3 mg and he settled easily. Librium 10 mg TID also started. Continue CIWAA with Ativan protocol. Seizure precautions. Thiamine and folic acid. HIGH fall risk. Nursing to monitor closely. Denies wanting inpatient treatment. Will provide community resources for sobriety. He is asking to go home today, I highly encouraged him to stay. He will think about it. If he is to leave he will need to sign out AMA. High likelyhood he would return to alcohol use. 2. Dehydration: Correct electrolytes. NS with 40 KCL x 1 then continue NS at 125 overnight. recheck BMP in am. 3. Thrombocytopenia: 45,000 today. Will monitor No signs of bleeding. Likely secondary to alcoholic cirrhosis. INR 1.12. Educated on signs of bleeding and his poor prognosis with liver damage from alcohol use. Continues to not want inpatient treatment. VTE prophylaxis: SCDs. Dispo: 1-2 days pending improvement. <Gustabo Pelayo - Last Filed: 09/04/18 13:14> - General Info Admission Dx/Problem (Free Text): I have seen and examined to patient independently of Jerilyn Burns CNP. I have discussed the case for care of this patient with her. I have reviewed and approve of the plan of care as outlined by BERTA. Please see orders. - Patient Data Vitals - Most Recent: Last Vital Signs Temp 37.0 C 09/04/18 12:00 Pulse 82 05/02/19 07:00 Resp 13 09/04/18 12:00 BP 108/58 L 09/04/18 12:00 Pulse Ox 97 09/04/18 12:00 I&O - Last 24 Hours: Intake & Output 09/03/18 09/04/18 09/04/18 22:59 06:59 14:59 Intake Total 2445 106 Output Total 250 Balance 2195 106 Lab Results Last 24 Hours: Laboratory Results - last 24 hr 09/03/18 09/03/18 09/03/18 Range/Units 13:48 13:48 13:48 WBC 5.42 (4.0-11.0) K/uL RBC 4.34 L (4.50-5.90) M/uL Hgb 15.0 (13.0-17.0) g/dL Hct 43.4 (38.0-50.0) % MCV 100.0 H (80.0-98.0) fL MCH 34.6 H (27.0-32.0) pg MCHC 34.6 (31.0-37.0) g/dL RDW Std Deviation 52.8 (28.0-62.0) fl RDW Coeff of [place] 14 (11.0-15.0) % Plt Count 58 L (150-400) K/uL MPV 11.10 (7.40-12.00) fL Neut % (Auto) 76.4 (48.0-80.0) % Lymph % (Auto) 10.9 L (16.0-40.0) % [place] % (Auto) 12.5 (0.0-15.0) % Eos % (Auto) 0.0 (0.0-7.0) % Baso % (Auto) 0.2 (0.0-1.5) % Neut # (Auto) 4.1 (1.4-5.7) K/uL Lymph # (Auto) 0.6 (0.6-2.4) K/uL [place] # (Auto) 0.7 (0.0-0.8) K/uL Eos # (Auto) 0.0 (0.0-0.7) K/uL Baso # (Auto) 0.0 (0.0-0.1) K/uL Nucleated RBC % 0.0 /100WBC Nucleated RBCs # 0 K/uL INR Sodium 131 L (136-148) mmol/L Potassium 3.2 L (3.5-5.1) mmol/L Chloride 87 L (98-107) mmol/L Carbon Dioxide 15.8 L (21.0-32.0) mmol/L BUN 19 H (7.0-18.0) mg/dL Creatinine 2.0 H (0.8-1.3) mg/dL Est Cr Clr Drug Dosing 41.56 mL/min Estimated GFR (MDRD) 35.7 ml/min Glucose 94 (74-106) mg/dL Calcium 9.6 (8.5-10.1) mg/dL Magnesium (1.8-2.4) mg/dL Total Bilirubin 1.7 H (0.2-1.0) mg/dL AST 140 H (15-37) IU/L ALT 53 (14-63) IU/L Alkaline Phosphatase 74 (46-116) U/L Total Protein 8.4 H (6.4-8.2) g/dL Albumin 4.1 (3.4-5.0) g/dL Globulin 4.3 H (2.6-4.0) g/dL Albumin/Globulin Ratio 1.0 (0.9-1.6) Prolactin 28.4 ng/mL Urine Color Urine Appearance Urine pH (5.0-8.0) Ur Specific [place] (1.001-1.035) Urine Protein (NEGATIVE) mg/dL Urine Glucose (UA) (NEGATIVE) mg/dL Urine Ketones (NEGATIVE) mg/dL Urine Occult Blood (NEGATIVE) Urine Nitrite (NEGATIVE) Urine Bilirubin (NEGATIVE) Urine Ictotest Urine Urobilinogen (<2.0) EU/dL Ur Leukocyte Esterase (NEGATIVE) Urine RBC (0-2/HPF) Urine WBC (0-5/HPF) Ur Epithelial Cells (NONE-FEW) Urine Bacteria (NEGATIVE) Urine Mucus (NONE-MOD) Ethyl Alcohol 20 mg/dL 09/04/18 09/04/18 09/04/18 Range/Units 01:35 05:05 05:05 WBC 3.78 L (4.0-11.0) K/uL RBC 3.56 L (4.50-5.90) M/uL Hgb 12.2 L (13.0-17.0) g/dL Hct 35.6 L (38.0-50.0) % MCV 100.0 H (80.0-98.0) fL MCH 34.3 H (27.0-32.0) pg MCHC 34.3 (31.0-37.0) g/dL RDW Std Deviation 52.4 (28.0-62.0) fl RDW Coeff of [place] 14 (11.0-15.0) % Plt Count 45 L (150-400) K/uL MPV 11.40 (7.40-12.00) fL Neut % (Auto) 60.1 (48.0-80.0) % Lymph % (Auto) 27.2 (16.0-40.0) % [place] % (Auto) 11.1 (0.0-15.0) % Eos % (Auto) 1.3 (0.0-7.0) % Baso % (Auto) 0.3 (0.0-1.5) % Neut # (Auto) 2.3 (1.4-5.7) K/uL Lymph # (Auto) 1.0 (0.6-2.4) K/uL [place] # (Auto) 0.4 (0.0-0.8) K/uL Eos # (Auto) 0.1 (0.0-0.7) K/uL Baso # (Auto) 0.0 (0.0-0.1) K/uL Nucleated RBC % 0.0 /100WBC Nucleated RBCs # 0 K/uL INR Sodium 134 L (136-148) mmol/L Potassium 3.2 L (3.5-5.1) mmol/L Chloride 99 (98-107) mmol/L Carbon Dioxide 23.9 (21.0-32.0) mmol/L BUN 16 (7.0-18.0) mg/dL Creatinine 0.8 (0.8-1.3) mg/dL Est Cr Clr Drug Dosing 84.56 mL/min Estimated GFR (MDRD) > 60.0 ml/min Glucose 70 L (74-106) mg/dL Calcium 7.9 L (8.5-10.1) mg/dL Magnesium (1.8-2.4) mg/dL Total Bilirubin 1.4 H (0.2-1.0) mg/dL AST 111 H (15-37) IU/L ALT 46 (14-63) IU/L Alkaline Phosphatase 54 (46-116) U/L Total Protein 6.2 L (6.4-8.2) g/dL Albumin 2.9 L (3.4-5.0) g/dL Globulin 3.3 (2.6-4.0) g/dL Albumin/Globulin Ratio 0.9 (0.9-1.6) Prolactin ng/mL Urine Color DARK YELLOW Urine Appearance SLT CLOUDY Urine pH 5.5 (5.0-8.0) Ur Specific [place] 1.020 (1.001-1.035) Urine Protein 100 H (NEGATIVE) mg/dL Urine Glucose (UA) NEGATIVE (NEGATIVE) mg/dL Urine Ketones 40 H (NEGATIVE) mg/dL Urine Occult Blood TRACE-INTACT H (NEGATIVE) Urine Nitrite POSITIVE H (NEGATIVE) Urine Bilirubin MODERATE H (NEGATIVE) Urine Ictotest NEGATIVE Urine Urobilinogen 2.0 H (<2.0) EU/dL Ur Leukocyte Esterase NEGATIVE (NEGATIVE) Urine RBC 0-1 (0-2/HPF) Urine WBC 0-1 (0-5/HPF) Ur Epithelial Cells RARE (NONE-FEW) Urine Bacteria 2+ H (NEGATIVE) Urine Mucus LIGHT (NONE-MOD) Ethyl Alcohol mg/dL 09/04/18 09/04/18 Range/Units 05:05 05:05 WBC (4.0-11.0) K/uL RBC (4.50-5.90) M/uL Hgb (13.0-17.0) g/dL Hct (38.0-50.0) % MCV (80.0-98.0) fL MCH (27.0-32.0) pg MCHC (31.0-37.0) g/dL RDW Std Deviation (28.0-62.0) fl RDW Coeff of [place] (11.0-15.0) % Plt Count (150-400) K/uL MPV (7.40-12.00) fL Neut % (Auto) (48.0-80.0) % Lymph % (Auto) (16.0-40.0) % [place] % (Auto) (0.0-15.0) % Eos % (Auto) (0.0-7.0) % Baso % (Auto) (0.0-1.5) % Neut # (Auto) (1.4-5.7) K/uL Lymph # (Auto) (0.6-2.4) K/uL [place] # (Auto) (0.0-0.8) K/uL Eos # (Auto) (0.0-0.7) K/uL Baso # (Auto) (0.0-0.1) K/uL Nucleated RBC % /100WBC Nucleated RBCs # K/uL INR 1.12 Sodium (136-148) mmol/L Potassium (3.5-5.1) mmol/L Chloride (98-107) mmol/L Carbon Dioxide (21.0-32.0) mmol/L BUN (7.0-18.0) mg/dL Creatinine (0.8-1.3) mg/dL Est Cr Clr Drug Dosing mL/min Estimated GFR (MDRD) ml/min Glucose (74-106) mg/dL Calcium (8.5-10.1) mg/dL Magnesium 1.6 L (1.8-2.4) mg/dL Total Bilirubin (0.2-1.0) mg/dL AST (15-37) IU/L ALT (14-63) IU/L Alkaline Phosphatase (46-116) U/L Total Protein (6.4-8.2) g/dL Albumin (3.4-5.0) g/dL Globulin (2.6-4.0) g/dL Albumin/Globulin Ratio (0.9-1.6) Prolactin ng/mL Urine Color Urine Appearance Urine pH (5.0-8.0) Ur Specific [place] (1.001-1.035) Urine Protein (NEGATIVE) mg/dL Urine Glucose (UA) (NEGATIVE) mg/dL Urine Ketones (NEGATIVE) mg/dL Urine Occult Blood (NEGATIVE) Urine Nitrite (NEGATIVE) Urine Bilirubin (NEGATIVE) Urine Ictotest Urine Urobilinogen (<2.0) EU/dL Ur Leukocyte Esterase (NEGATIVE) Urine RBC (0-2/HPF) Urine WBC (0-5/HPF) Ur Epithelial Cells (NONE-FEW) Urine Bacteria (NEGATIVE) Urine Mucus (NONE-MOD) Ethyl Alcohol mg/dL Med Orders - Current: Current Medications Acetaminophen (Tylenol) 650 mg PO Q4H PRN PRN Reason: Pain (Mild 1-3)/fever Bisacodyl (Dulcolax) 10 mg PO BID PRN PRN Reason: Constipation Last Admin: 09/04/18 08:47 Dose: 10 mg Chlordiazepoxide HCl (Librium) 10 mg PO TID [facility] Last Admin: 09/04/18 13:04 Dose: 10 mg Folic Acid (Folic Acid) 1 mg PO BEDTIME [facility] Last Admin: 09/03/18 20:27 Dose: 1 mg Sodium Chloride (Normal Saline) 1,000 mls @ 125 mls/hr IV ASDIRECTED [facility] Last Admin: 09/04/18 10:32 Dose: 125 mls/hr Potassium Chloride 40 meq/ (Sodium Chloride) 520 mls @ 130 mls/hr IV ONETIME ONE Stop: 09/04/18 22:59 Lorazepam (Ativan) 0 mg IV Q4H PRN; Protocol PRN Reason: CIWAA Last Admin: 09/04/18 13:07 Dose: 1 mg Nicotine (Habitrol) 21 mg TRDERM DAILY [facility] Last Admin: 09/04/18 09:48 Dose: 21 mg Ondansetron HCl (Zofran) 4 mg IVPUSH Q4H PRN PRN Reason: Nausea Thiamine HCl (Vitamin B-1) 100 mg PO BEDTIME [facility] Last Admin: 09/03/18 20:27 Dose: 100 mg Discontinued Medications Chlordiazepoxide HCl (Librium) 10 mg PO TID [facility] Last Admin: 09/04/18 06:38 Dose: 10 mg Chlordiazepoxide HCl (Librium) Confirm Administered Dose 10 mg .ROUTE .STK-MED ONE Stop: 09/03/18 21:51 Last Admin: 09/03/18 22:15 Dose: Not Given Chlordiazepoxide HCl (Librium) Confirm Administered Dose 10 mg .ROUTE .STK-MED ONE Stop: 09/04/18 06:10 Last Admin: 09/04/18 06:38 Dose: Not Given Multivitamins/Minerals 10 ml/Thiamine HCl 100 mg/ Folic Acid 1 mg/ Sodium Chloride 1,011.2 mls @ 999 mls/hr IV ONETIME ONE Stop: 09/03/18 14:36 Last Admin: 09/03/18 14:19 Dose: 999 mls/hr Potassium Chloride/Sodium Chloride (Normal Saline With 40 Meq Kcl) 1,000 mls @ 150 mls/hr IV ASDIRECTED ASHISH Stop: 09/03/18 23:24 Last Admin: 09/03/18 18:29 Dose: 150 mls/hr Sodium Chloride (Normal Saline) 500 mls @ 500 mls/hr IV NOW STA Stop: 09/04/18 03:05 Last Admin: 09/04/18 02:17 Dose: 500 mls/hr Magnesium Sulfate 3 gm/ Sodium (Chloride) 106 mls @ 53 mls/hr IV ONETIME ONE Stop: 09/04/18 09:59 Last Admin: 09/04/18 08:36 Dose: Not Given Potassium Chloride 40 meq/ (Sodium Chloride) 520 mls @ 130 mls/hr IV ONETIME ONE Stop: 09/04/18 11:59 Last Admin: 09/04/18 08:21 Dose: 130 mls/hr Magnesium Sulfate 3 gm/ Sodium (Chloride) 106 mls @ 53 mls/hr IV ONETIME ONE Stop: 09/04/18 10:14 Last Admin: 09/04/18 08:21 Dose: 53 mls/hr Lorazepam (Ativan) 1 mg IVPUSH ONETIME ONE Stop: 09/03/18 16:02 Last Admin: 09/03/18 16:34 Dose: 1 mg - My Orders Last 24 Hours: My Active Orders 09/03/18 20:58 Transfer Patient (Change bed) [ADT] Routine 09/04/18 07:14 Admission Status [Patient Status] [ADT] Routine 09/04/18 08:25 Bisacodyl [Dulcolax] 10 mg PO BID PRN 09/04/18 14:00 chlordiazePOXIDE [Librium] 10 mg PO TID
--- NOTE | 2018-09-04 20:19 | CR ---
INDICATION: Pain after fall COMPARISON: None available. TECHNIQUE: AP and lateral views of the right humerus were obtained for a total of two views. There is no sign of fracture or dislocation. The visualized elbow and shoulder are normal in appearance. The soft tissue planes are preserved. There is no opaque foreign body. IMPRESSION: Normal right humerus. Dictated by Lennox Rodriguez MD @ Sep 04 2018 8:18PM Signed by Dr. Lennox Rodriguez @ Sep 04 2018 8:18PM
--- NOTE | 2018-09-04 20:24 | CR ---
Indication: Fall Technique: A single view of the right shoulder Comparison: None available Findings: Bones: Alignment is normal. No fractures or bone lesions. Joint spaces: Unremarkable. Soft tissues: Unremarkable. Impression: Negative. Dictated by Ranjan Ruth MD @ 09/04/2018 8:21:52 PM Dictated by: Ranjan Ruth MD @ 09/04/2018 20:22:28 (Electronically Signed)
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
[2018-09-04] MEDS: Folic Acid 1 MG Tab PO SCH (20:40)
[2018-09-04] MEDS: Thiamine 100 MG Tab PO SCH (20:47)
[2018-09-05] MEDS: Sodium Chloride 0.9% 1,000 ML IV SCH (03:00)
[2018-09-05 06:13] LABS: CHLORIDE,CL 98 mmol/L (98-107); SODIUM,NA 133 mmol/L (136-148)
[2018-09-05] MEDS: Nicotine 21 MG/24 Hr Patch TRDERM SCH (08:31)
[2018-09-05] MEDS ORDERED: Potassium Chloride 10% 20 MEQ/15 ML Soln 30 ML UD Cup PO SCH (09:00)
[2018-09-05] MEDS ORDERED: Magnesium Oxide 400 MG Tab PO SCH (09:00)
[2018-09-05] MEDS ORDERED: Cephalexin 500 MG Cap PO SCH (09:00)
--- NOTE | 2018-09-05 09:56 | PCM.DCSUM1 ---
<Jerilyn Burns M - Last Filed: 09/05/18 10:04> Discharge Summary - Hospital Course Brief History: This 48 year old male with pmh of alcohol abuse and dependence, with history of withdrawl and seizures presented to the ED after having an episode of seizure like activity at work. He reports he was looking up and then next thing he was on the ground and co-workers around him saw him tremulous. No urine or bowel incontinence. He reports he drinks 12 pack of beer daily, starting to drink in the mornings to keep the shakes away. Adds in hard alcohol intermittently ad on the weekends he easily drinks 30 beers daily. He reports he has quit for short period of time, but is not interested in inpatient treatment. He reports I need to keep working. Sobriety was urged due to health concerns currently. He reports his last drink was last evening sometime. In the ED thrombocytopenia noted, platelets 58,000, Na 131, K+ 3.2, Bicarb 15.8, BUN 19, Cr 2.0. Bilirubin 1.[address] negative as well as CXR. He was noted to be tachycardic and tremulous in the ED. He was given MVI in 1 L NS along with Ativan. he will be admitted for alcohol withdrawl. Diagnosis: Stroke: No - Discharge Data Discharge Date: 09/05/18 Discharge Disposition: Home, Self-Care 01 Condition: Good - Discharge Diagnosis/Problem(s) (1) Alcohol withdrawal syndrome SNOMED Code(s): 004126149 ICD Code: F10.239 - ALCOHOL DEPENDENCE WITH WITHDRAWAL, UNSPECIFIED Status : Acute Qualifiers: Complication of substance-induced condition: uncomplicated Qualified Code(s ): F10.230 - Alcohol dependence with withdrawal, uncomplicated (2) Thrombocytopenia SNOMED Code(s): 827226307 ICD Code: D69.6 - THROMBOCYTOPENIA, UNSPECIFIED Status: Acute (3) Dehydration SNOMED Code(s): 03143284 ICD Code: E86.0 - DEHYDRATION Status: Acute (4) Hypokalemia SNOMED Code(s): 33972195 ICD Code: E87.6 - HYPOKALEMIA Status: Acute (5) Seizure-like activity SNOMED Code(s): 905183606 ICD Code: R56.9 - UNSPECIFIED CONVULSIONS Status: Acute (6) Alcohol abuse SNOMED Code(s): 60434582 ICD Code: F10.10 - ALCOHOL ABUSE, UNCOMPLICATED Status: Chronic (7) Alcohol dependence SNOMED Code(s): 27834439 ICD Code: F10.20 - ALCOHOL DEPENDENCE, UNCOMPLICATED Status: Chronic Qualifiers: Substance use status: unspecified alcohol-induced disorder Qualified Code(s ): F10.29 - Alcohol dependence with unspecified alcohol-induced disorder - Patient Instructions Diet: Regular Diet as Tolerated Activity: No Strenuous Activities Driving: Do Not Drive (today or while intoxicate.) Notify Provider of: Fever, Increased Pain, Swelling and Redness, Drainage, Nausea and/or Vomiting Other/Special Instructions: Sobriety highly encouraged. Please provide resources for , [facility] and [facility] services. - Discharge Plan *PRESCRIPTION DRUG MONITORING PROGRAM REVIEWED*: Not Applicable *COPY OF PRESCRIPTION DRUG MONITORING REPORT IN PATIENT KETURAH: Not Applicable Prescriptions/Med Rec: cephALEXin [Keflex] 500 mg PO Q12HR #10 cap Folic Acid 1 mg PO BEDTIME #30 tablet Magnesium Oxide 400 mg PO BID #60 tablet Multivit with Calcium,Iron,Min [Essential Daily] 1 each PO DAILY #30 tablet Thiamine [Vitamin B-1] 100 mg PO BEDTIME #30 tablet Home Medications: Home Meds Folic Acid 1 mg PO BEDTIME #30 tablet 09/05/18 [Rx] Magnesium Oxide 400 mg PO BID #60 tablet 09/05/18 [Rx] Multivit with Calcium,Iron,Min [Essential Daily] 1 each PO DAILY #30 tablet 07/22 [Rx] Thiamine [Vitamin B-1] 100 mg PO BEDTIME #30 tablet 09/05/18 [Rx] cephALEXin [Keflex] 500 mg PO Q12HR #10 cap 09/05/18 [Rx] Oxygen Therapy Mode: Room Air Patient Handouts: Steps to Quit Smoking, [id number], Urinary Tract Infection , Adult, [id number], Thiamine, Vitamin B1 tablets, Dehydration, Adult, Easy-to -Read, Chlordiazepoxide capsules, Cephalexin tablets or capsules, Finding Treatment for Addiction, Magnesium Hydroxide chewable tablets, Folic Acid, Vitamin B9 tablets, Alcohol Withdrawal Syndrome, [id number] Referrals: Faisal Lujan [Ordering Only Provider] - 09/15/18 3:00 pm Mirza Jeff MD [Physician] - 09/15/18 3:00 pm - Discharge Summary/Plan Comment DC Time >30 min.: No Discharge Summary/Plan Comment: Admitting diagnoses: Alcohol withdrawal ITZ Hypokalemia Discharge Diagnoses: Alcohol abuse Thrombocytopenia UTI Other PMH: Smoker Juan was admitted and transferred to ICU due to CIWAA scores elevating to 30. He was treated with Ativan and low dose Librium. His last CIWAA score was 3. he was treated with IVFs and supplemented with potassium, magnesium. Thiamine and folic acid were also continued due to alcohol abuse. He is alert and requesting discharge home. He wants to go back to work and does not want to stay. He continues to not want inpatient treatment. I discussed at length with him this morning the poor prognosis for him if he continues to drink. He verbalized understanding. I will give him outpatient sobriety resources, but the likelyhood of him remaining sober at this time is low. He was encouraged to stay away from contact activities or climbing up high due to his thrombocytopenia. He was encouraged to follow up with PCP for further management and evaluation. I will not send home with Ativan or Librium, again as his chances of sobriety are low. He is to return to ED or clinic if concerns should arise. - General Info Date of Service: 09/05/18 Admission Dx/Problem (Free Text: Alcohol withdrawal Subjective Update: Sitting on edge of bed, awaiting breakfast. Asking to go home. He no longer wants to stay here. No pain. No concerns. He is feeling much better. Minute tremors noted. No hallucinations. Functional Status: Reports: Pain Controlled, Tolerating Diet, Ambulating, Urinating - Review of Systems General: Reports: No Symptoms. Denies: Fever, Weakness, Fatigue Pulmonary: Reports: No Symptoms. Denies: Shortness of Breath Cardiovascular: Reports: No Symptoms. Denies: Chest Pain Gastrointestinal: Reports: No Symptoms. Denies: Abdominal Pain, Nausea, Vomiting Genitourinary: Reports: No Symptoms. Denies: Dysuria, Frequency, Burning Musculoskeletal: Reports: No Symptoms Neurological: Reports: Tremors (small) Psychiatric: Reports: No Symptoms - Patient Data Vitals - Most Recent: Last Vital Signs Temp 98.6 F 09/05/18 08:00 Pulse 82 09/04/18 07:00 Resp 15 09/05/18 09:00 BP 127/75 09/05/18 09:00 Pulse Ox 96 09/05/18 09:00 Weight - Most Recent: 53.524 kg I&O - Last 24 hours: Intake & Output 09/04/18 09/05/18 09/05/18 22:59 06:59 14:59 Intake Total 4883 Output Total 1170 Balance 3713 Lab Results - Last 24 hrs: Laboratory Results - last 24 hr 09/04/18 09/05/18 09/05/18 Range/Units 16:05 05:30 05:30 WBC 3.95 L (4.0-11.0) K/uL RBC 3.79 L (4.50-5.90) M/uL Hgb 13.1 (13.0-17.0) g/dL Hct 38.0 (38.0-50.0) % MCV 100.3 H (80.0-98.0) fL MCH 34.6 H (27.0-32.0) pg MCHC 34.5 (31.0-37.0) g/dL RDW Std Deviation 52.1 (28.0-62.0) fl RDW Coeff of [place] 14 (11.0-15.0) % Plt Count 51 L (150-400) K/uL MPV 11.80 (7.40-12.00) fL Neut % (Auto) 47.1 L (48.0-80.0) % Lymph % (Auto) 35.2 (16.0-40.0) % Sunflower % (Auto) 14.2 (0.0-15.0) % Eos % (Auto) 3.0 (0.0-7.0) % Baso % (Auto) 0.5 (0.0-1.5) % Neut # (Auto) 1.9 (1.4-5.7) K/uL Lymph # (Auto) 1.4 (0.6-2.4) K/uL Sunflower # (Auto) 0.6 (0.0-0.8) K/uL Eos # (Auto) 0.1 (0.0-0.7) K/uL Baso # (Auto) 0.0 (0.0-0.1) K/uL Nucleated RBC % 0.0 /100WBC Nucleated RBCs # 0 K/uL Sodium 133 L 133 L (136-148) mmol/L Potassium 3.3 L 3.1 L (3.5-5.1) mmol/L Chloride 97 L 98 (98-107) mmol/L Carbon Dioxide 28.0 26.3 (21.0-32.0) mmol/L Anion Gap 11.3 BUN 8 (7.0-18.0) mg/dL Creatinine 0.7 L (0.8-1.3) mg/dL Est Cr Clr Drug Dosing 96.64 mL/min Estimated GFR (MDRD) > 60.0 ml/min Glucose 89 (74-106) mg/dL Calcium 8.1 L (8.5-10.1) mg/dL Magnesium 2.0 1.5 L (1.8-2.4) mg/dL Med Orders - Current: Current Medications Acetaminophen (Tylenol) 650 mg PO Q4H PRN PRN Reason: Pain (Mild 1-3)/fever Bisacodyl (Dulcolax) 10 mg PO BID PRN PRN Reason: Constipation Last Admin: 09/04/18 08:47 Dose: 10 mg Cephalexin (Keflex) 500 mg PO Q12HR [facility] Last Admin: 09/05/18 08:30 Dose: 500 mg Chlordiazepoxide HCl (Librium) 10 mg PO TID [facility] Last Admin: 09/05/18 08:17 Dose: 10 mg Folic Acid (Folic Acid) 1 mg PO BEDTIME [facility] Last Admin: 09/04/18 20:40 Dose: 1 mg Sodium Chloride (Normal Saline) 1,000 mls @ 125 mls/hr IV ASDIRECTED [facility] Last Admin: 09/05/18 03:00 Dose: 125 mls/hr Lorazepam (Ativan) 0 mg IV Q4H PRN; Protocol PRN Reason: CIWAA Last Admin: 09/04/18 16:38 Dose: 1 mg Magnesium Oxide (Magnesium Oxide) 400 mg PO BID [facility] Last Admin: 09/05/18 08:30 Dose: 400 mg Nicotine (Habitrol) 21 mg TRDERM DAILY [facility] Last Admin: 09/05/18 08:31 Dose: 21 mg Ondansetron HCl (Zofran) 4 mg IVPUSH Q4H PRN PRN Reason: Nausea Potassium Chloride (Potassium Chloride) 40 meq PO TID [facility] Last Admin: 09/05/18 08:30 Dose: 40 meq Thiamine HCl (Vitamin B-1) 100 mg PO BEDTIME [facility] Last Admin: 09/04/18 20:47 Dose: 100 mg Discontinued Medications Chlordiazepoxide HCl (Librium) 10 mg PO TID [facility] Last Admin: 09/04/18 06:38 Dose: 10 mg Chlordiazepoxide HCl (Librium) Confirm Administered Dose 10 mg .ROUTE .STK-MED ONE Stop: 09/03/18 21:51 Last Admin: 09/03/18 22:15 Dose: Not Given Chlordiazepoxide HCl (Librium) Confirm Administered Dose 10 mg .ROUTE .STK-MED ONE Stop: 09/04/18 06:10 Last Admin: 09/04/18 06:38 Dose: Not Given Multivitamins/Minerals 10 ml/Thiamine HCl 100 mg/ Folic Acid 1 mg/ Sodium Chloride 1,011.2 mls @ 999 mls/hr IV ONETIME ONE Stop: 09/03/18 14:36 Last Admin: 09/03/18 14:19 Dose: 999 mls/hr Potassium Chloride/Sodium Chloride (Normal Saline With 40 Meq Kcl) 1,000 mls @ 150 mls/hr IV ASDIRECTED [facility] Stop: 09/03/18 23:24 Last Admin: 09/03/18 18:29 Dose: 150 mls/hr Sodium Chloride (Normal Saline) 500 mls @ 500 mls/hr IV NOW [facility] Stop: 09/04/18 03:05 Last Admin: 09/04/18 02:17 Dose: 500 mls/hr Magnesium Sulfate 3 gm/ Sodium (Chloride) 106 mls @ 53 mls/hr IV ONETIME ONE Stop: 09/04/18 09:59 Last Admin: 09/04/18 08:36 Dose: Not Given Potassium Chloride 40 meq/ (Sodium Chloride) 520 mls @ 130 mls/hr IV ONETIME ONE Stop: 09/04/18 11:59 Last Admin: 09/04/18 08:21 Dose: 130 mls/hr Potassium Chloride 40 meq/ (Sodium Chloride) 520 mls @ 130 mls/hr IV ONETIME ONE Stop: 09/04/18 22:59 Last Admin: 09/04/18 18:01 Dose: 130 mls/hr Magnesium Sulfate 3 gm/ Sodium (Chloride) 106 mls @ 53 mls/hr IV ONETIME ONE Stop: 09/04/18 10:14 Last Admin: 09/04/18 08:21 Dose: 53 mls/hr Lorazepam (Ativan) 1 mg IVPUSH ONETIME ONE Stop: 09/03/18 16:02 Last Admin: 09/03/18 16:34 Dose: 1 mg - Exam General: Reports: Alert, Oriented, Cooperative, No Acute Distress Lungs: Reports: Clear to Auscultation, Normal Respiratory Effort Cardiovascular: Reports: Regular Rate, Regular Rhythm GI/Abdominal Exam: Normal Bowel Sounds, Soft, Non-Tender Neurological: Reports: No New Focal Deficit Psy/Mental Status: Reports: Alert, Normal Affect, Normal Mood, Withdrawal Symptoms (very little symptoms noted, minute tremors to hands. ) *Q Meaningful Use (DIS) - VTE *Q VTE Pharmacological Contraindications *Q: Risk of Bleeding <Gustabo Pelayo - Last Filed: 09/05/18 13:08> Discharge Summary - Hospital Course HPI Initial Comments: I have seen and examined to patient independently of Jerilyn Burns CNP. I have discussed the case for care of this patient with her. I have reviewed and approve of the plan of care as outlined by BERTA. Please see orders. The patient' s prospects for continued sobriety are poor based on his previous track record. - Patient Data Vitals - Most Recent: Last Vital Signs Temp 37 C 09/05/18 08:00 Pulse 82 09/04/18 07:00 Resp 15 09/05/18 09:00 BP 127/75 09/05/18 09:00 Pulse Ox 96 09/05/18 09:00 I&O - Last 24 hours: Intake & Output 09/04/18 09/05/18 09/05/18 22:59 06:59 14:59 Intake Total 4883 Output Total 1170 Balance 3713 Lab Results - Last 24 hrs: Laboratory Results - last 24 hr 09/04/18 09/05/18 09/05/18 Range/Units 16:05 05:30 05:30 WBC 3.95 L (4.0-11.0) K/uL RBC 3.79 L (4.50-5.90) M/uL Hgb 13.1 (13.0-17.0) g/dL Hct 38.0 (38.0-50.0) % MCV 100.3 H (80.0-98.0) fL MCH 34.6 H (27.0-32.0) pg MCHC 34.5 (31.0-37.0) g/dL RDW Std Deviation 52.1 (28.0-62.0) fl RDW Coeff of [place] 14 (11.0-15.0) % Plt Count 51 L (150-400) K/uL MPV 11.80 (7.40-12.00) fL Neut % (Auto) 47.1 L (48.0-80.0) % Lymph % (Auto) 35.2 (16.0-40.0) % Sunflower % (Auto) 14.2 (0.0-15.0) % Eos % (Auto) 3.0 (0.0-7.0) % Baso % (Auto) 0.5 (0.0-1.5) % Neut # (Auto) 1.9 (1.4-5.7) K/uL Lymph # (Auto) 1.4 (0.6-2.4) K/uL Sunflower # (Auto) 0.6 (0.0-0.8) K/uL Eos # (Auto) 0.1 (0.0-0.7) K/uL Baso # (Auto) 0.0 (0.0-0.1) K/uL Nucleated RBC % 0.0 /100WBC Nucleated RBCs # 0 K/uL Sodium 133 L 133 L (136-148) mmol/L Potassium 3.3 L 3.1 L (3.5-5.1) mmol/L Chloride 97 L 98 (98-107) mmol/L Carbon Dioxide 28.0 26.3 (21.0-32.0) mmol/L Anion Gap 11.3 BUN 8 (7.0-18.0) mg/dL Creatinine 0.7 L (0.8-1.3) mg/dL Est Cr Clr Drug Dosing 96.64 mL/min Estimated GFR (MDRD) > 60.0 ml/min Glucose 89 (74-106) mg/dL Calcium 8.1 L (8.5-10.1) mg/dL Magnesium 2.0 1.5 L (1.8-2.4) mg/dL DEL Results - Last 24 hrs: Microbiology 09/04/18 01:35 Urine Culture - Final Urine, Clean Catch MIXED LOYDA >100,000 CFU/ML Med Orders - Current: Current Medications Discontinued Medications Acetaminophen (Tylenol) 650 mg PO Q4H PRN PRN Reason: Pain (Mild 1-3)/fever Bisacodyl (Dulcolax) 10 mg PO BID PRN PRN Reason: Constipation Last Admin: 09/04/18 08:47 Dose: 10 mg Cephalexin (Keflex) 500 mg PO Q12HR [facility] Last Admin: 09/05/18 08:30 Dose: 500 mg Chlordiazepoxide HCl (Librium) 10 mg PO TID [facility] Last Admin: 09/04/18 06:38 Dose: 10 mg Chlordiazepoxide HCl (Librium) Confirm Administered Dose 10 mg .ROUTE .STK-MED ONE Stop: 09/03/18 21:51 Last Admin: 09/03/18 22:15 Dose: Not Given Chlordiazepoxide HCl (Librium) Confirm Administered Dose 10 mg .ROUTE .STK-MED ONE Stop: 09/04/18 06:10 Last Admin: 09/04/18 06:38 Dose: Not Given Chlordiazepoxide HCl (Librium) 10 mg PO TID [facility] Last Admin: 09/05/18 08:17 Dose: 10 mg Folic Acid (Folic Acid) 1 mg PO BEDTIME [facility] Last Admin: 09/04/18 20:40 Dose: 1 mg Multivitamins/Minerals 10 ml/Thiamine HCl 100 mg/ Folic Acid 1 mg/ Sodium Chloride 1,011.2 mls @ 999 mls/hr IV ONETIME ONE Stop: 09/03/18 14:36 Last Admin: 09/03/18 14:19 Dose: 999 mls/hr Sodium Chloride (Normal Saline) 1,000 mls @ 125 mls/hr IV ASDIRECTED [facility] Last Admin: 09/05/18 03:00 Dose: 125 mls/hr Potassium Chloride/Sodium Chloride (Normal Saline With 40 Meq Kcl) 1,000 mls @ 150 mls/hr IV ASDIRECTED [facility] Stop: 09/03/18 23:24 Last Admin: 09/03/18 18:29 Dose: 150 mls/hr Sodium Chloride (Normal Saline) 500 mls @ 500 mls/hr IV NOW [facility] Stop: 09/04/18 03:05 Last Admin: 09/04/18 02:17 Dose: 500 mls/hr Magnesium Sulfate 3 gm/ Sodium (Chloride) 106 mls @ 53 mls/hr IV ONETIME ONE Stop: 09/04/18 09:59 Last Admin: 09/04/18 08:36 Dose: Not Given Potassium Chloride 40 meq/ (Sodium Chloride) 520 mls @ 130 mls/hr IV ONETIME ONE Stop: 09/04/18 11:59 Last Admin: 09/04/18 08:21 Dose: 130 mls/hr Potassium Chloride 40 meq/ (Sodium Chloride) 520 mls @ 130 mls/hr IV ONETIME ONE Stop: 09/04/18 22:59 Last Admin: 09/04/18 18:01 Dose: 130 mls/hr Magnesium Sulfate 3 gm/ Sodium (Chloride) 106 mls @ 53 mls/hr IV ONETIME ONE Stop: 09/04/18 10:14 Last Admin: 09/04/18 08:21 Dose: 53 mls/hr Lorazepam (Ativan) 1 mg IVPUSH ONETIME ONE Stop: 09/03/18 16:02 Last Admin: 09/03/18 16:34 Dose: 1 mg Lorazepam (Ativan) 0 mg IV Q4H PRN; Protocol PRN Reason: CIWAA Last Admin: 09/04/18 16:38 Dose: 1 mg Magnesium Oxide (Magnesium Oxide) 400 mg PO BID [facility] Last Admin: 09/05/18 08:30 Dose: 400 mg Nicotine (Habitrol) 21 mg TRDERM DAILY [facility] Last Admin: 09/05/18 08:31 Dose: 21 mg Ondansetron HCl (Zofran) 4 mg IVPUSH Q4H PRN PRN Reason: Nausea Potassium Chloride (Potassium Chloride) 40 meq PO TID [facility] Last Admin: 09/05/18 08:30 Dose: 40 meq Thiamine HCl (Vitamin B-1) 100 mg PO BEDTIME [facility] Last Admin: 09/04/18 20:47 Dose: 100 mg
== END 2018-09-05 10:18 | disposition home or self-care (01) | DRG 897 ==
LOC: MW.ED 13:34 → MW.MS 16:23 → MW.ICU 20:08 → OBSVTOIN 09-04 07:14
PROVIDERS: ADMIT Internal Medicine; ATTEND Internal Medicine
PROC: HZ2ZZZZ Detoxification Services for Substance Abuse Treatment (ICD-10-PCS; principal; 2018-09-04)
DX: F10.230 Alcohol dependence with withdrawal, uncomplicated (principal); N39.0 Urinary tract infection, site not specified; D69.6 Thrombocytopenia, unspecified; F17.210 Nicotine dependence, cigarettes, uncomplicated; E86.0 Dehydration; E87.6 Hypokalemia; R56.9 Unspecified convulsions; F10.29 Alcohol dependence with unspecified alcohol-induced disorder; Z86.11 Personal history of tuberculosis
CPT/HCPCS: 36415; 70450; 70450-26; 71045; 71045-26; 73020-26-RT; 73020-RT; 73060-26-RT; 73060-RT; 73090-26-RT; 73090-RT; 73100-26-RT; 73100-RT; 80048; 80051; 80053; 81001; 83735; 84146; 85025; 85610; 87086; 93005; 96361; 96365; 96366; 96367; 96375; 96376; 99284; 99285-25; A9270-GY; G0378; G0480; J2060; J3411; J3475; J3480; J7030; J7040